=== PATIENT | female | born 1970 | race Caucasian/White ===

== ENCOUNTER 2017-09-05 16:33 | Emergency (ER) | payer OTHER ==
[~2017-09-05] VITALS: Ht 162.6 cm; Wt 65.8 kg
[~2017-09-05 16:33] MED LIST: BUPR100T4 PO; LORA1TAB PO; OMEP40CA PO; PARO30TA74 PO
--- NOTE | 2017-09-05 16:44 | NUR ---
Pt was triaged and placed back in ER waiting room. There are no ER beds available at this time.
--- NOTE | 2017-09-05 20:35 | NUR ---
Dr. Soto at bedside for MSE.
[2017-09-05 20:53] LABS: *URINE HCG, QUAL NEGATIVE (NEGATIVE)
[2017-09-05] MEDS ORDERED: KETOROLAC TROMETHAMINE 30 MG INJ IM ONE (21:00)
[2017-09-05] MEDS ORDERED: KETOROLAC TROMETHAMINE 30 MG INJ ONE (21:13)
--- NOTE | 2017-09-05 22:13 | NUR ---
Patient discharged to home in stable conditon. Written and verbal after care instructions given. Patient verbalizes understanding of instructions. Pt ambulated out of ER with steady gait, no acute signs of distress, VSS, all belongings taken.
[2017-09-05 22:14] VITALS: BP 115/90
== END 2017-09-05 22:14 | disposition home or self-care (01) ==
LOC: ER 16:36
DX: M79.605 Pain in left leg (principal); K21.9 Gastro-esophageal reflux disease without esophagitis; Z88.5 Allergy status to narcotic agent; Z88.8 Allergy status to other drugs, medicaments and biological substances; Z79.899 Other long term (current) drug therapy
CPT/HCPCS: 73551; 84703; A4663; J1885

== ENCOUNTER 2022-09-23 15:14 | Emergency (ER) | payer MEDICARE, BC ==
[~2022-09-23] VITALS: Ht 165.1 cm; Wt 63.5 kg
--- NOTE | 2022-09-23 15:37 | NUR ---
Pt seen by MD for bedside eval. Safety measures in place. Will continue to monitor.
[2022-09-23] MEDS ORDERED: IV NORMAL SALINE 500 ML BAG IV ONE (15:45)
[2022-09-23] MEDS ORDERED: HYDROMORPHONE 1 MG/1 ML DISP.SYRIN IV ONE (15:45)
[2022-09-23] MEDS ORDERED: ONDANSETRON 4 MG/2 ML VIAL IV ONE (15:45)
[2022-09-23] MEDS ORDERED: ONDANSETRON 4 MG/2 ML VIAL ONE (15:53)
[2022-09-23] MEDS ORDERED: HYDROMORPHONE 1 MG/1 ML DISP.SYRIN ONE (15:54)
--- NOTE | 2022-09-23 15:58 | NUR ---
Pt signed consent for IV contraqsted CT scan, placed in the chart.
[2022-09-23 16:04] LABS: *BILIRUBIN,URIN NEGATIVE (NEGATIVE); *BLOOD, URINE NEGATIVE (NEGATIVE); *CLARITY,URINE CLEAR (CLEAR); *COLOR,URINE YELLOW (YELLOW); *KETONES,URINE TRACE (NEGATIVE); *UROBILINOGEN,URINE 0.2 E.U./dl (NORMAL); LEUKOCYTE ESTERASE ,URINE NEGATIVE (NEGATIVE); NITRITE, URINE NEGATIVE (NEGATIVE); PH,URINE 5.5 (5.0-8.0); UGLUCOSE NEGATIVE (NEGATIVE)
[2022-09-23 16:14] LABS: *URINE HCG, QUAL NEGATIVE (NEGATIVE)
[2022-09-23 16:53] LABS: BILIRUBIN,TOTAL 0.2 mg/dL (0.2-1.0); CREATININE 0.9 mg/dL (0.6-1.3); POTASSIUM 4.3 mmol/L (3.5-5.1); TOTAL PROTEIN, SERUM 6.4 g/dL (6.4-8.2)
[2022-09-23 17:03] LABS: HEMATOCRIT 36.4 % (31.2-41.9); MEAN CORPUSCULAR HEMOGLOBIN 26.4 uug (24.7-32.8); MEAN CORPUSCULAR VOLUME 81.9 fL (75.5-95.3); PLATELET COUNT (AUTO) 309 K/uL (179-408)
[2022-09-23] MEDS ORDERED: IOHEXOL 300MG/ML 100 ML INFUS..BTL ONE (17:06)
[2022-09-23] MEDS ORDERED: SWABABLE VALVE TRANSFER SET EA MC ONE (17:07)
[2022-09-23] MEDS ORDERED: IV NORMAL SALINE 250 ML IV ONE (17:07)
[2022-09-23] MEDS ORDERED: MAGNESIUM CITRATE 296 ML BOTTLE PO ONE (17:15)
[2022-09-23] MEDS ORDERED: HALOPERIDOL LACTATE 5 MG/1 ML VIAL IV ONE (17:15)
[2022-09-23] MEDS ORDERED: HALOPERIDOL LACTATE 5 MG/1 ML VIAL ONE (17:16)
[2022-09-23] MEDS ORDERED: FLEET ENEMA 133 ML BOTTLE RC ONE ×2 (17:30→17:32)
[2022-09-23] MEDS ORDERED: [UNRECOGNIZED DRUG - CODE] PO (18:22)
[2022-09-23] MEDS ORDERED: KETOROLAC TROMETHAMINE 15 MG INJ ONE (18:26)
[2022-09-23] MEDS ORDERED: KETOROLAC TROMETHAMINE 15 MG INJ IVP ONE (18:30)
--- NOTE | 2022-09-23 18:37 | NUR ---
Patient discharged to home in stable condition. Written and verbal after care instructions given. Patient verbalizes understanding of instructions. Stressed follow up or return to ER for worsening s/s.
[2022-09-23 18:38] VITALS: BP 105/62; TEMP 97.8; O2SAT 97
== END 2022-09-23 18:38 | disposition home or self-care (01) ==
LOC: ER 15:29
DX: K59.00 Constipation, unspecified (principal); G43.909 Migraine, unspecified, not intractable, without status migrainosus; K21.9 Gastro-esophageal reflux disease without esophagitis; Z88.5 Allergy status to narcotic agent; Z88.8 Allergy status to other drugs, medicaments and biological substances; Z79.899 Other long term (current) drug therapy
CPT/HCPCS: 99285; 74177; 96374; 96375; 76856; 96361; 80053; 81003; 84703; 85025; 84484; 36415; 93005; J1630; J1885; J2405; Q9967; J1170; J7040; A4663

== ENCOUNTER 2022-10-13 16:44 | Emergency (ER) | payer MEDICARE, BC ==
[~2022-10-13] VITALS: Ht 162.6 cm; Wt 56.7 kg
[~2022-10-13 16:44] MED LIST changes: +[UNRECOGNIZED DRUG - CODE] PO
[2022-10-13] MEDS ORDERED: IV NORMAL SALINE 500 ML BAG IV ONE (17:00)
[2022-10-13] MEDS ORDERED: ONDANSETRON 4 MG/2 ML VIAL IV ONE (17:00)
[2022-10-13] MEDS ORDERED: MORPHINE SULFATE 2 MG/1 ML DISP.SYRIN IV ONE (17:00)
[2022-10-13] MEDS ORDERED: LIDOCAINE 5% PATCH TD ONE ×2 (17:15→17:23)
[2022-10-13 17:34] LABS: *BILIRUBIN,URIN NEGATIVE (NEGATIVE); *BLOOD, URINE NEGATIVE (NEGATIVE); *CLARITY,URINE CLEAR (CLEAR); *COLOR,URINE YELLOW (YELLOW); *KETONES,URINE NEGATIVE (NEGATIVE); *PROTEIN,URINE NEGATIVE (NEGATIVE); *UROBILINOGEN,URINE 0.2 E.U./dl (NORMAL); LEUKOCYTE ESTERASE ,URINE NEGATIVE (NEGATIVE); NITRITE, URINE NEGATIVE (NEGATIVE); PH,URINE 8.5 (5.0-8.0); UGLUCOSE NEGATIVE (NEGATIVE)
[2022-10-13 17:42] VITALS: BP 93/49; O2SAT 97
[2022-10-13 17:53] LABS: *AMPHETAMINE, URINE NEGATIVE (NEGATIVE); *BARBITURATE, URINE NEGATIVE (NEGATIVE); *BENZODIAZEPINE, URINE POSITIVE (NEGATIVE); *CANNABINOID, URINE NEGATIVE (NEGATIVE); *COCCAINE, URINE NEGATIVE (NEGATIVE); *OPIATE, URINE NEGATIVE (NEGATIVE); *PHENCYCLIDINE SCREEN,URINE NEGATIVE (NEGATIVE); FENTANYL, URINE NEGATIVE (NEGATIVE)
== END 2022-10-13 17:43 | disposition left against medical advice (07) ==
LOC: ER 16:58
DX: M79.10 Myalgia, unspecified site (principal); R07.89 Other chest pain; Z88.5 Allergy status to narcotic agent; Z88.8 Allergy status to other drugs, medicaments and biological substances; Z79.899 Other long term (current) drug therapy
CPT/HCPCS: 71045; 93005; A4663